=== PATIENT | female | born 1980 | race African-American/Black ===

== ENCOUNTER → 2016-09-01 | Emergency (ER) | payer MEDICAID ==
[~2016-09-01] VITALS: Ht 165.1 cm; Wt 85.1 kg
[~2016-09-01] MED LIST: ABCT PO; ACHYD1T PO; ALB0.5V INH; AML5T PO; AMOX500C5 PO; AMPH30CA PO; ARM1EACH MC; ATN25T PO; CARI1.5C PO; CETI10CA PO; CLON0.2T PO; CLON1PAT15 TD; DESV100T PO; DOCU100C23 PO; ESCI10TA PO; FAMO-118 PO; FAMO20TA13 PO; HCT25T PO; HYDR-3702 PO; IBP800T PO; IVER3TAB2 PO; LIDOVISC MT; LORA-405 PO; LORA1TAB PO; LORazepam 2 MG/ML (ATIVAN) 1 ML VIAL IM ONE; MAGN84TA PO; METH4TAB27 PO; MMT17NA NSEACH; MNTL10T PO; NF-ADDXR30 PO; OMEG1CAP58 PO; PREN-93 PO; QTP100T PO; QUET300T3 PO; RIBO100T3 PO; RIZA PO; RIZA10TA24 PO; SERT20OR3 PO; TIZAN4T PO; TRM50T PO; VALA10004 PO
[2016-09-01 12:43] VITALS: BP 137/82
--- NOTE | 2016-09-01 13:27 | Diagnostic Imaging Report ---
INDICATION: Shortness of breath COMPARISON: 05/24/16 FINDINGS: Frontal and lateral views of the chest demonstrate clear lungs bilaterally. Heart size is normal. There is no pneumothorax. Osseous structures are normal. IMPRESSION: Negative chest. Dictated by: Dictated on workstation # [id number]
== END | disposition home or self-care (01) ==
LOC: ED 12:40
DX: F41.0 Panic disorder [episodic paroxysmal anxiety] (principal)
CPT/HCPCS: 71020; 96372; 99282; J2060; 99283

== ENCOUNTER 2016-09-07 16:35 | Emergency (ER) | payer MEDICAID ==
[~2016-09-07] VITALS: Ht 165.1 cm; Wt 87.2 kg
[~2016-09-07 16:35] MED LIST changes: -ACHYD1T PO; -CARI1.5C PO; -LORA-405 PO; -LORazepam 2 MG/ML (ATIVAN) 1 ML VIAL IM ONE; -RIZA PO
[2016-09-07] MEDS ORDERED: LORazepam 2 MG/ML (ATIVAN) 1 ML VIAL IV ONE (16:55)
[2016-09-07] MEDS ORDERED: diphenhydrAMINE 50 MG/ML INJ (BENADRYL) IV ONE (16:55)
[2016-09-07] MEDS ORDERED: KETOROLAC 30 MG/ML (TORADOL) 1 ML VIAL IV ONE (16:55)
[2016-09-07] MEDS ORDERED: DEXAMETHASONE 4 MG/ML (DECADRON) 5ml VIAL IV ONE (16:55)
[2016-09-07 18:43] LABS: AMPHETAMINE SCREEN, URINE Negative (Negative); CANNABINOID SCREEN, URINE Negative (Negative); METHAMPHETAMINE SCREEN URINE S NEGATIVE (NEGATIVE); OPIATE SCREEN URINE Negative (Negative); PROPOXYPHENE STAT NEGATIVE (NEGATIVE)
[2016-09-07] MEDS ORDERED: NALBUPHINE 10 MG/ML (NUBAIN) 1 ML AMP IV ONE (19:05)
[2016-09-07] MEDS ORDERED: DIAZEPAM 10 MG/2 ML (VALIUM) SYRINGE IV ONE (19:05)
--- NOTE | 2016-09-07 20:16 | Diagnostic Imaging Report ---
INDICATION: Knee popping. Pain around the patella. FINDINGS: Nonweightbearing images show narrowing of the medial joint space. The articulating surfaces are smooth. Patella is in normal alignment with the cochlea. Good preservation of joint space. There is calcification along the medial collateral ligament attachment to the fibula. No loose bodies are demonstrated. No evidence of chondrocalcinosis. IMPRESSION: 1. Mild degenerative changes are present. 2. Calcification along the proximal medial collateral ligament attachment to the femur. Dictated by: Dictated on workstation # [id number]
--- NOTE | 2016-09-07 20:21 | NUR ---
Pt has been walking around her room and seems very excited. She has asked on numerous occasions to go outside and smoke. I told her that while she has her IV that she is not to leave the ER unless she is wanting to sign out against medical advice. She agreed to stay to be treated. She also has asked for many cups of coffee which she was given. Since first checking in she has added that her left knee hurts, she needs a prescription for adderal and that her Mirena device has fallen out while she was on the toilet. Dr. Restrepo was notified of all of these new complaints. I have not observed the pt favoring her knee or limping. Pt has actually been very excited and rocking her legs back and forth very quickly. She has also been up walking a round in her room quite a bit while here.
--- NOTE | 2016-09-07 20:41 | NUR ---
Pt chose to have the YAZAN wrap applied to her leg on top of her jeans. I applied YAZAN wrap as requested and notified Dr. Restrepo.
[2016-09-07] MEDS ORDERED: RIZA PO (20:42)
[2016-09-07] MEDS ORDERED: ACHYD1T PO (20:42)
[2016-09-07] MEDS ORDERED: LORA1TAB PO (20:42)
[2016-09-07] MEDS ORDERED: DESV100T PO (20:42)
[2016-09-07] MEDS ORDERED: QUET300T3 PO (20:42)
[2016-09-07 20:53] VITALS: BP 118/78
[2016-10-01] MEDS ORDERED: CARI1.5C PO (15:59)
[2016-10-01] MEDS ORDERED: LORA-405 PO (16:42)
== END 2016-09-07 20:50 | disposition home or self-care (01) ==
LOC: ED 16:36
DX: G43.909 Migraine, unspecified, not intractable, without status migrainosus (principal); F41.9 Anxiety disorder, unspecified; F17.200 Nicotine dependence, unspecified, uncomplicated; M25.562 Pain in left knee; F90.9 Attention-deficit hyperactivity disorder, unspecified type
CPT/HCPCS: 73564; 80307; 81025; 96361; 96374; 96375; 99283; J1100; J1200; J1885; J2060; J2300; J3360; J7030

== ENCOUNTER → 2016-09-08 | Outpatient (CLI) | payer MEDICAID ==
[~2016-09-08] MED LIST changes: +ACHYD1T PO; +CARI1.5C PO; +LORA-405 PO; +RIZA PO
[2016-09-08 18:14] VITALS: BP 138/87
--- NOTE | 2016-09-08 18:14 | Urgent Care T Sheet Gen (E) ---
Intake General Temperature (Fahrenheit): 98.0 Pulse: 89 Blood Pressure Systolic: 138 Blood Pressure Diastolic: 87 Respirations: 18 SPO2: 98 Description of Symptoms Patient presents with several issues. First, patient states she was seen in the ER yesterday for a migraine and for medication refill. Patient has several mental health illnesses for which she sees Jeannette Lord. She can't be seen by PV until Sep 30. Patient received med refill in the ER for all meds but Adderall. Is requesting that today. Next, patient states her Mirena IUD has started to fall out and she wants it removed. She also fears she is . Next, she complains of chronic L knee pain and would like some Tramadol until her PCP can refer her to Dr Escalera, whom she has had knee surgeries with in the past. Patient states she has reinjured the L knee and needs to be seen by ortho. History of Present Illness Allergies: Coded Allergies: sumatriptan (Verified Allergy, Unknown, 09/07/16) Home Meds Active Scripts Hydrocodone Bit/Acetaminophen ([place] 10mg/325mg)1 Ea Tab1 Tab PO Q6H PRN PAIN # 30 TAB Ref 0 Prov:ANGELINA PAYTON MD 09/07/16 Lorazepam (Ativan)1 Mg Tab1 Mg PO BID PRN ANXIETY #30 TAB Ref 0 Prov:ANGELINA PAYTON MD 09/07/16 Quetiapine Fumarate (Seroquel XR)300 Mg Tab.er.47u740 Mg PO HS #60 TAB Ref 0 2 po qHS Prov:ANGELINA PAYTON MD 09/07/16 Rizatriptan Benzoate (Maxalt-POKER MANAGER)10 Mg Tab.hkctxu13 Mg PO Q2H W/A PRN MIGRAINE # 10 TAB Ref 2 NS One po q2hrs prn; maximum 3 per 24 hours Prov:ANGELINA PAYTON MD 09/07/16 Desvenlafaxine Succinate (Pristiq ER)100 Mg Tab.er.04d007 Mg PO DAILY #30 TAB Prov:ANGELINA PAYTON MD 09/07/16 Lorazepam (Ativan)1 Mg Tab1 Mg PO BID #15 TAB Ref 0 Prov:RAFAEL CUNNINGHAM DO 09/01/16 Reported Medications Ibuprofen 800 Mg Xylivq123 Mg PO TID PRN MIGRAINE 05/22/15 Famotidine (Pepcid)20 Mg Irlili83 Mg PO BID 05/22/15 Amphet Asp/Amphet/D-Amphet (Dextroamp-Amphet ER)30 Mg Cap.er.24h30 Mg PO BID 05/22/15 Quetiapine Fumarate (Seroquel XR)300 Mg Tab.er.46s022 Mg PO HS 05/22/15 Rizatriptan Benzoate (Rizatriptan)10 Mg Fmvbju36 Mg PO Q2H W/A PRN HEADACHE 05/21/15 Escitalopram Oxalate (Lexapro)10 Mg Lgbatf56 Mg PO DAILY 05/14/15 Hydrochlorothiazide (Hctz)25 Mg Xujiey91 Mg PO DAILY Ref 0 05/14/15 Desvenlafaxine Succinate (Pristiq ER)100 Mg Tab.er.71z921 Mg PO DAILY 03/10/15 Mometasone Furoate (Nasonex)17 Gm Naspr2 [place] NSEACH DAILY PRN CONGESTION 01/10/15 Cetirizine HCl (Zyrtec)10 Mg Jkrybbr39 Mg PO DAILY 01/10/15 Discontinued Reported Medications Docusate Sodium (Doc-Q-Lace)100 Mg Hqjokqk889 Mg PO HS PRN CONSTIPATION 01/10/15 [place]-3 Fatty Acids/Fish Oil ([place] 3 1,000 mg Softgel)1 Each Capsule1,000 Mg PO DAILY 01/10/15 Pnv Cmb#95/Ferrous Fumarate/Fa ( Multivitamins Tablet)1 Each Tablet1 Each PO DAILY 01/10/15 Discontinued Scripts Lidocaine HCl (Xylocaine 2% Viscous)100 Ml Dgfz364 Ml MT QIDPRN #1 BTL mix 1tbs lido w/ 1tbs water, then swish and gargle, then spit out Prov:JULIANNA AVILEZ MD 07/16/15 Magnesium (Mag-Tab SR)84 Mg Tablet.er84 Mg PO BID #60 TAB Ref 0 Prov:CHINTAN CLEMENTS MD 05/23/15 Riboflavin 100 Mg Tqgmma588 Mg PO BID #60 TAB Ref 0 Prov:CHINTAN CLEMENTS MD 05/23/15 Respiratory Constitutional Symptoms: No syptoms reported EENTM: No symptoms reported Respiratory: No symptoms reported Cardiovascular: No symptoms reported Gastrointestinal/Abdominal: No symptoms reported Estimated Date of Delivery: 02/18/15 Musculoskeletal: Joint pain Muscle pain All Other Systems Reviewed Remaining Systems: All other systems reviewed with negative findings Past Rigkiov-Fqbtgj-Kncxji Hx Patient's Social History Alcohol Use: Denies Use Smoking Status: Current some day smoker Recent foreign travel: No Surgeries/Hospitalizations Hospitalization/Surgery Hx: x 3 left knee sx wisdom teeth removed Hospitalized for migraine 04/2015 Respiratory Respiratory History: Asthma Cardiovascular Cardiovascular History: Hypertension Neuro/Muscular Neuro/Muscular History: Migraine Comment: "seizure like activity" Reproductive System Sexually Transmitted Diseases: No Genitouinary Genitourinary History: None Gastrointestinal GI/Endocrine History: Constipation Diabetes Diabetes: No HEENT Impaired Vision: None Hearing Impaired: None Integumentary Integumentary History: Other, see comments Comment: infected sore Cancer History of Cancer?: No Psychosocial Behavior Disorders: Other, See Comment Blood Transfusions Hx of Blood transfusions: No Physical Exam Physical Exam General Appearance: WD/WN No apparent distress Extremity Exam: Other (examination of the L knee reveals generalized swelling. no crepitus is noted however there is some joint instability. appears to have normal strength but has giveaway weakness due to pain. ) Neurologic/Psychiatric Exam: Oriented times 4 (very anxious) No motor deficits No sensory deficits Abnormal gait (antalgic gait) Progress/Orders Lab Results Labs Results: UA-UHCG (negative) Departure Urgent Care Impression Impression: Primary Impression: Intrauterine contraceptive device Additional Impression: Knee pain, left Qualified Code: M25.562 - Pain in left knee Departure Disposition: 01 HOME OR SELF-CARE Condition: Stable Referrals: KIMANI SOMMERS MD (PCP) Additional Instructions: Long discussion with patient regarding workup and treatment. Explained to the patient that I don't have the equipment for IUD removal. I called Dr Tesfaye's office, who was kind enough to see her tomorrow at 10am. Paperwork has been faxed to his office. She did have a negative urine test here at . She states that with her 3 previous pregnancies, urine tests were negative however blood tests were positive. Per her request, I sent an order to the lab for which she can stop by and have a serum test done. Regarding the Adderall, explained to her that I don't prescribe that at . She will have to get that from her [facility] provider. Lastly, regarding the L knee pain. The patient has visible swelling and instability as well as pain. I prescribed Tramadol 50mg q 4 hrs prn pain #30. Suggested she f/u with PCP for referral back to Dr Escalera. She may even be able to make her own appt since she is an established patient. All questions were answered. Patient understands DC instructions. End of report . DOROTA GUNTER Sep 08, 2016 18:14
--- NOTE | 2016-09-09 10:22 | Urgent Care Follow Up Note (E) ---
Urgent Care Follow Up Note I was just informed by Dr Tesfaye's office that Opal did not show up to her 10am scheduled appt for removal of her IUD. DOROTA GUNTER Sep 09, 2016 10:22
== END ==
LOC: MHUC 15:29
PROVIDERS: ATTEND Physician Assistant
DX: M25.562 Pain in left knee (principal); Z97.5 Presence of (intrauterine) contraceptive device
CPT/HCPCS: 81025; 99213

== ENCOUNTER 2016-09-20 11:58 | Emergency (ER) | payer SELFPAY ==
[~2016-09-20] VITALS: Ht 165.1 cm; Wt 87.8 kg
[2016-09-20] MEDS ORDERED: LORazepam 2 MG/ML (ATIVAN) 1 ML VIAL IM ONE (12:45)
[2016-09-20] MEDS ORDERED: HYDROmorphone 2 MG/ML (DILAUDID) 1 ML SYRINGE IM ONE (13:35)
[2016-09-20] MEDS ORDERED: PROMETHAZINE 25 MG/ML (PHENERGAN) 1 ML VIAL IM ONE (13:35)
[2016-09-20] MEDS ORDERED: DEXAMETHASONE 10 MG/ML (DECADRON) VIAL IM ONE (13:35)
--- NOTE | 2016-09-20 13:36 | NUR ---
pt wanted to know how to use the toilet
[2016-09-20 13:50] VITALS: BP 101/66
== END 2016-09-20 13:48 | disposition home or self-care (01) ==
LOC: ED 11:59
DX: G43.909 Migraine, unspecified, not intractable, without status migrainosus (principal)
CPT/HCPCS: 70450; 96372; 99282; J1100; J1170; J2060; J2550; 99283

== ENCOUNTER 2016-09-27 11:52 | Emergency (ER) | payer SELFPAY ==
[~2016-09-27] VITALS: Ht 165.1 cm; Wt 86.0 kg
[2016-09-27] MEDS ORDERED: HYDROmorphone 2 MG/ML (DILAUDID) 1 ML SYRINGE IM ONE (12:30)
[2016-09-27] MEDS ORDERED: PROMETHAZINE 25 MG/ML (PHENERGAN) 1 ML VIAL IM ONE (12:30)
[2016-09-27] MEDS ORDERED: KETOROLAC 60 MG/2 ML (TORADOL) VIAL IM ONE (12:30)
[2016-09-27] MEDS ORDERED: LORazepam 2 MG/ML (ATIVAN) 1 ML VIAL IM ONE (12:30)
[2016-09-27 13:09] LABS: HCG,QUALITATIVE URINE Negative (Negative)
[2016-09-27 13:18] LABS: AMPHETAMINE SCREEN, URINE Positive (Negative); CANNABINOID SCREEN, URINE Negative (Negative); METHAMPHETAMINE SCREEN URINE S POSITIVE (NEGATIVE); OPIATE SCREEN URINE Negative (Negative); PROPOXYPHENE STAT NEGATIVE (NEGATIVE)
[2016-09-27 13:33] VITALS: BP 94/61
== END 2016-09-27 13:34 | disposition home or self-care (01) ==
LOC: ED 11:53
DX: G43.909 Migraine, unspecified, not intractable, without status migrainosus (principal); F41.9 Anxiety disorder, unspecified; G89.29 Other chronic pain; M79.1 Myalgia
CPT/HCPCS: 80307; 81025; 96372; 99282; J1170; J1885; J2060; J2550

== ENCOUNTER 2016-10-01 15:18 | Emergency (ER) | payer SELFPAY ==
[~2016-10-01] VITALS: Ht 165.1 cm; Wt 87.0 kg
[2016-10-01 15:23] VITALS: BP 111/72
--- NOTE | 2016-10-01 15:30 | NUR ---
PT STATES "THE MAIN DR HERE USUALLY GIVES ME ATIVAN FOR MY ANXIETY". "MY MIGRAINES CAUSE MY ANXIETY TO GO THROUGH THE ROOF." CL
--- NOTE | 2016-10-01 15:48 | NUR ---
PT MIRYAM AT BEDSIDE NOW & WHEN ASKED ABOUT WHAT APPT HE HAS MADE FOR PT, HE STATES NONE. DR SOMMERS'S OFC STATES HE WILL RESUME SEEING PT IF SHE SEES HIM BEFORE OCTOBER 22, 2016. PT VERBALIZES UNDERSTANDING. CL
[2016-10-01] MEDS ORDERED: NALBUPHINE 10 MG/ML (NUBAIN) 1 ML AMP IM ONE (16:15)
[2016-10-01] MEDS ORDERED: LORazepam 2 MG/ML (ATIVAN) 1 ML VIAL IM ONE (16:15)
--- NOTE | 2016-10-01 17:03 | NUR ---
ATTEMPTING TO FIND A RIDE FOR PT. HOSP WILL PAY FOR A CAB. PT TRYING TO FIND SOMEONE TO PAY FOR A HOTEL FOR THEM. CL
--- NOTE | 2016-10-01 17:06 | NUR ---
PT ACTUALLY NOT NEEDING A HOTEL BUT INSTEAD WILL TRAVEL TO [employer] TO WAIT FOR A BUS THAT COMES TO THE [facility] HERE TO TAKE THEM TO [place]. CL
--- NOTE | 2016-10-01 17:15 | NUR ---
Bulb Tester has signed voucher for [employer] withdrawal of $9.00 to pay for pt and spouse to get from this ED to [facility]. Pt says they can wait at [facility] until bus arrives at the [facility] at 1900. This bus will take them to [place] where they hope someone will help them with a room for the night. Pt does confirm they are currently living in [place] and provides new address.This new address given to ED identification clerk for updating information on file.
--- NOTE | 2016-10-01 17:20 | NUR ---
Patient has has accepted and been given the $9.00 for taxi ride. Patient has moved self and two large, full backpacks to ED Lobby to await arrival of taxi.
--- NOTE | 2016-10-01 17:25 | NUR ---
Patient and spouse sitting outside ED front door awaiting arrival of taxi.
--- NOTE | 2016-10-01 17:29 | NUR ---
Patient has departed hospital per taxi accompaned by spouse.
== END 2016-10-01 17:29 | disposition home or self-care (01) ==
LOC: ED 15:19
DX: G43.809 Other migraine, not intractable, without status migrainosus (principal); F41.9 Anxiety disorder, unspecified; F17.210 Nicotine dependence, cigarettes, uncomplicated
CPT/HCPCS: 96372; 99283; J2060; J2300